=== PATIENT | female | born 2000 | race Caucasian/White ===

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

== ENCOUNTER 2019-04-29 20:13 | Emergency (ER) | payer OTHER ==
[~2019-04-29] VITALS: Ht 152.4 cm; Wt 48.0 kg
[~2019-04-29 20:13] MED LIST: CYCL10TA7 PO; IBUP-1542 PO; IBUP-1561 PO; ONDA4TAB14 PO
[2019-04-29 20:21] VITALS: Ht 152.4 cm; Wt 48.0 kg
[2019-04-29] MEDS ORDERED: morphine 2 MG INJ IV STA (20:45)
[2019-04-29] MEDS ORDERED: ONDANSETRON 4 MG INJ IV STA (20:45)
[2019-04-29] MEDS ORDERED: SOD CHLORIDE 0.9% 1,000 ML IV ONE (21:00)
[2019-04-29] MEDS ORDERED: IOHEXOL 300MG/ML 150 ML BTL ONE (21:40)
[2019-04-29] MEDS ORDERED: SOD CHLORIDE 0.9% 100 ML ONE (21:40)
[2019-04-29 22:27] VITALS: BP 102/68; PULSE 79; RESP 18
== END 2019-04-29 22:30 | disposition home or self-care (01) ==
LOC: FTE 20:13
DX: R10.2 Pelvic and perineal pain (principal); J45.909 Unspecified asthma, uncomplicated; R10.31 Right lower quadrant pain
CPT/HCPCS: 74177; 76830; 76856; 80053; 81003; 81025; 82150; 83690; 85025; 85610; 85730; 87086; J2270; J2405; J7030; Q9967; Z7610; 36415; 96374; 96375